=== PATIENT | female | born 1990 | race Caucasian/White ===

== ENCOUNTER 2021-02-03 14:24 | Outpatient (CLI) | payer SELFPAY ==
[2021-02-04 03:28] LABS: SARS-CoV-2 PCR by NAA Not Detected (NotDetected)
== END 2021-02-03 14:25 | disposition home or self-care (01) ==
LOC: CSHLAB 14:24
PROVIDERS: ATTEND Obstetrics & Gynecology
DX: Z20.822 Contact with and (suspected) exposure to COVID-19 (principal)
CPT/HCPCS: 87635; U0003; U0005

== ENCOUNTER 2021-02-07 18:50 | Inpatient (IN) | payer SELFPAY ==
[2021-02-07] MEDS ORDERED: Butorphanol Tartrate 1 MG/ML VIAL SLOW IVP PRN (20:30)
[2021-02-07] MEDS ORDERED: hydrALAZINE 20 MG/ML VIAL SLOW IVP PRN (20:30)
[2021-02-07] MEDS ORDERED: NS / Oxytocin 40 units/1000ml 1,000 ML IV PRN (20:30)
[2021-02-07] MEDS ORDERED: Ibuprofen 800 MG TAB PO PRN (20:30)
[2021-02-07] MEDS ORDERED: Promethazine HCl 25 MG/ML VIAL IM PRN (20:30)
[2021-02-07] MEDS ORDERED: Ondansetron PF 4 MG/2 ML Vial IVP PRN (20:30)
[2021-02-07] MEDS ORDERED: HYDROcodone/Acetaminophen 5/325 mg Tablet PO PRN ×2 (20:30)
[2021-02-07] MEDS ORDERED: Lidocaine 1% (PF) 30 ML VIAL SC PRN (20:30)
[2021-02-07 20:31] VITALS: BMI 23.0
[2021-02-07 20:51] LABS: Hemoglobin 12.5 g/dL (12.0-15.5); Mean Corpuscular HGB CONC 35.4 g/dL (32.0-36.0); Mean Corpuscular Hemoglobin 32.6 pg (27.0-33.0); Mean Corpuscular Volume 91.9 fl (81.6-98.3); Mean Platelet Volume 11.1 fl (7.4-10.4); Platelet Count 185 10x3/uL (150-450); RBC Distribution Width 12.5 % (11.5-14.5); Red Blood Cell (RBC) Count 3.84 10x6/uL (3.90-5.03); White Blood Cell (WBC) Count 6.5 10x3/uL (3.5-10.5)
[2021-02-07 21:22] LABS: Hep B Surf Ag Non-Reactive S/CO (NonReactive)
[2021-02-07 21:23] LABS: Syphilis Antibody Nonreactive (Nonreactive); Syphilis Antibody Index 0.03 S/CO (<1.00 Non-Reactive)
[2021-02-07 21:27] LABS: HBSAg Index 0.15 S/CO (0-0.99)
[2021-02-08] MEDS ORDERED: NS w/ Oxytocin 30 units 500 ML ONE (06:02)
[2021-02-08] MEDS ORDERED: Ibuprofen 800 MG TAB PO PRN (06:06)
[2021-02-08] MEDS ORDERED: hydrALAZINE 20 MG/ML VIAL SLOW IVP PRN ×2 (06:06→13:18)
[2021-02-08] MEDS ORDERED: HYDROcodone/Acetaminophen 5/325 mg Tablet PO PRN ×4 (06:07→13:18)
[2021-02-08] MEDS ORDERED: Butorphanol Tartrate 1 MG/ML VIAL SLOW IVP PRN (06:08)
[2021-02-08] MEDS ORDERED: Ondansetron PF 4 MG/2 ML Vial IVP PRN ×3 (06:08→13:18)
[2021-02-08] MEDS ORDERED: Lidocaine 1% (PF) 30 ML VIAL SC PRN (06:08)
[2021-02-08] MEDS ORDERED: Promethazine HCl 25 MG/ML VIAL IM PRN ×2 (06:08→09:50)
[2021-02-08] MEDS ORDERED: NS w/ Oxytocin 30 units 500 ML IVPB PRN (06:09)
[2021-02-08] MEDS ORDERED: Lactated Ringer's 1,000 ML IV SCH (06:15)
[2021-02-08] MEDS ORDERED: NS w/ Oxytocin 30 units 500 ML IV SCH (06:30)
[2021-02-08] MEDS ORDERED: Fentanyl 4 mcg/Bup 0.1% Cadd 100 ML ONE (08:29)
[2021-02-08] MEDS ORDERED: ePHEDrine 50 MG/ML VIAL SLOW IVP PRN (09:50)
[2021-02-08] MEDS ORDERED: Naloxone HCl 0.4 mg/ml Vial IVP PRN ×2 (09:50)
[2021-02-08] MEDS ORDERED: diphenhydrAMINE 50 MG/ML VIAL IVP PRN (09:50)
[2021-02-08] MEDS ORDERED: Eucerin (Mineral Oil/Petrolatum,White) 30 gm Jar TOP PRN (09:50)
[2021-02-08] MEDS ORDERED: Lactated Ringer's 500 ML IV PRN (09:50)
[2021-02-08] MEDS ORDERED: Acetaminophen 325 MG TAB PO PRN (09:50)
[2021-02-08] MEDS ORDERED: Fentanyl 4 mcg/Bupivacaine 0.1% Cassette 100 ML EPIDURAL SCH (10:00)
[2021-02-08] MEDS ORDERED: Communication Order-Pharmacy FS SCH (10:00)
[2021-02-08] MEDS ORDERED: Erythromycin Base 0.5% Oint 1 GM TUBE ONE (11:15)
[2021-02-08] MEDS ORDERED: Hepatitis B Vaccine 10 MCG/0.5 ML SYR ONE (11:15)
[2021-02-08] MEDS ORDERED: Phytonadione Neonatal 1 MG/0.5 ML AMP ONE (11:15)
[2021-02-08] MEDS ORDERED: Preparation H Ointment 28 GM TUBE PR PRN (13:18)
[2021-02-08] MEDS ORDERED: Bisacodyl 10 MG SUPP PR PRN (13:18)
[2021-02-08] MEDS ORDERED: Adacel (T-DAP) 0.5 ML SYRINGE IM ONE (13:18)
[2021-02-08] MEDS ORDERED: Lanolin Ointment 7 GM TUBE TOP PRN (13:18)
[2021-02-08] MEDS ORDERED: diphenhydrAMINE 25 MG CAP PO PRN (13:18)
[2021-02-08] MEDS ORDERED: Benzocaine-Menthol 82.5 ML CAN TOP PRN (13:18)
[2021-02-08] MEDS ORDERED: Milk Of Magnesia 30 ML UDCUP PO PRN (13:18)
[2021-02-08] MEDS ORDERED: NS w/ Oxytocin 30 units 500 ML IVPB SCH (14:15)
[2021-02-08] MEDS ORDERED: Boostrix 0.5 ML (Tdap) VIAL IM ONE (14:15)
[2021-02-08] MEDS: Ibuprofen 800 MG TAB PO SCH ×2 (14:25→21:45)
[2021-02-08] MEDS: Ferrous Sulfate 325 MG TAB PO SCH (15:37)
[2021-02-08] MEDS: Lactated Ringer's 1,000 ML IV SCH (15:38)
[2021-02-08] MEDS: Docusate Calcium (SURFAK) 240 MG CAP PO SCH (21:46)
[2021-02-09] MEDS: Ibuprofen 800 MG TAB PO SCH (05:34)
[2021-02-09 08:01] VITALS: BP 99/54; TEMP 98.1
[2021-02-09] MEDS ORDERED: Prenatal Vitamin 1 TAB PO SCH (09:00)
[2021-02-09] MEDS: Docusate Calcium (SURFAK) 240 MG CAP PO SCH (09:16)
[2021-02-09] MEDS: Ferrous Sulfate 325 MG TAB PO SCH (09:16)
== END 2021-02-09 13:55 | disposition home or self-care (01) | DRG 807 ==
LOC: CSHLD 18:50 → UNDODISIN 02-08 00:50 → CSHPP 02-08 13:30
PROVIDERS: ADMIT Obstetrics & Gynecology; ATTEND Obstetrics & Gynecology
PROC: 10E0XZZ Delivery of Products of Conception, External Approach (ICD-10-PCS; principal; 2021-02-08)
PROC: 10907ZC Drainage of Amniotic Fluid, Therapeutic from Products of Conception, Via Natural or Artificial Opening (ICD-10-PCS; 2021-02-08)
PROC: 0U7C7ZZ Dilation of Cervix, Via Natural or Artificial Opening (ICD-10-PCS; 2021-02-08)
DX: O34.211 Maternal care for low transverse scar from previous cesarean delivery (principal); Z37.0 Single live birth; O48.0 Post-term pregnancy; Z20.822 Contact with and (suspected) exposure to COVID-19; Z3A.40 40 weeks gestation of pregnancy
CPT/HCPCS: 85027; 86780; 86850; 86900; 86901; 87340; J2590

== ENCOUNTER 2024-03-04 12:07 | Inpatient (IN) | payer OTHER, SELFPAY ==
[2024-03-04] MEDS ORDERED: HYDROcodone/Acetaminophen 5/325 mg Tablet PO PRN ×2 (20:25)
[2024-03-04] MEDS ORDERED: Lidocaine 1% (PF) 30 ML VIAL SC PRN (20:25)
[2024-03-04] MEDS ORDERED: hydrALAZINE 20 MG/ML VIAL SLOW IVP PRN (20:25)
[2024-03-04] MEDS ORDERED: Oxytocin 30 units/NS 500 ML 500 ML IV SCH ×2 (20:25)
[2024-03-04] MEDS ORDERED: Lactated Ringer's 1,000 ML IV SCH (20:25)
[2024-03-04] MEDS ORDERED: Ondansetron PF 4 MG/2 ML Vial IVP PRN (20:25)
[2024-03-04] MEDS ORDERED: Promethazine HCl 25 MG/ML VIAL IM PRN (20:25)
[2024-03-04] MEDS ORDERED: fentaNYL 50 mcg/mL 1 mL Vial SLOW IVP PRN (20:25)
[2024-03-04 20:30] VITALS: BMI 23.3
[2024-03-04] MEDS ORDERED: Oxytocin 30 units/NS 500 ML 500 ML IVPB SCH (21:45)
[2024-03-04 21:50] LABS: Hematocrit 34.5 % (34.9-44.5); Hemoglobin 12.4 g/dL (12.0-15.5); Mean Corpuscular HGB CONC 35.9 g/dL (32.0-36.0); Mean Corpuscular Hemoglobin 33.3 pg (27.0-33.0); Mean Corpuscular Volume 92.7 fl (81.6-98.3); Mean Platelet Volume 11.1 fl (7.4-10.4); Platelet Count 189 10x3/uL (150-450); RBC Distribution Width 12.6 % (11.5-14.5); Red Blood Cell (RBC) Count 3.72 10x6/uL (3.90-5.03); White Blood Cell (WBC) Count 6.8 10x3/uL (3.5-10.5)
[2024-03-04 22:09] LABS: HBsAg Index 0.16 S/CO (0-0.99); Hep B Surf Ag - L&D Non-Reactive S/CO (NonReactive); Syphilis Antibody Nonreactive (Nonreactive); Syphilis Antibody Index 0.06 S/CO (<1.00 Non-Reactive)
[2024-03-05] MEDS: fentaNYL 2 mcg/Ropivacaine 0.2% Epidural 100 ML CADD EPIDURAL SCH (11:40)
[2024-03-05] MEDS ORDERED: Acetaminophen 325 MG TAB PO PRN (13:05)
[2024-03-05] MEDS ORDERED: Ondansetron PF 4 MG/2 ML Vial IVP PRN ×2 (13:05→18:31)
[2024-03-05] MEDS ORDERED: Lactated Ringer's 500 ML IV PRN (13:05)
[2024-03-05] MEDS ORDERED: Moisturizing Cream (Eucerin) 113 GM JAR TOP PRN (13:05)
[2024-03-05] MEDS ORDERED: Promethazine HCl 25 MG/ML VIAL IM PRN (13:05)
[2024-03-05] MEDS ORDERED: Naloxone HCl 0.4 mg/ml Vial IVP PRN ×2 (13:05)
[2024-03-05] MEDS ORDERED: diphenhydrAMINE 50 MG/ML VIAL IVP PRN (13:05)
[2024-03-05] MEDS ORDERED: Communication Order-Pharmacy FS SCH (13:15)
[2024-03-05] MEDS: ePHEDrine Sulfate 50 MG/10 ML VIAL SLOW IVP PRN (13:24)
[2024-03-05] MEDS: Methylergonovine 0.2 MG/ML VIAL ONE (14:24)
[2024-03-05] MEDS: Misoprostol 200 MCG TAB ONE (14:24)
[2024-03-05] MEDS: Ibuprofen 800 MG TAB PO PRN (18:17)
[2024-03-05] MEDS: Midazolam HCl 2 mg/2 ml Vial ONE (18:18)
[2024-03-05] MEDS ORDERED: Benzocaine-Menthol 82.5 ML CAN TOP PRN (18:31)
[2024-03-05] MEDS ORDERED: Bisacodyl 10 MG SUPP PR PRN (18:31)
[2024-03-05] MEDS ORDERED: Boostrix 0.5 ML (Tdap) VIAL (>/=7 yrs of age) IM ONE (18:31)
[2024-03-05] MEDS ORDERED: hydrALAZINE 20 MG/ML VIAL SLOW IVP PRN (18:31)
[2024-03-05] MEDS ORDERED: Oxytocin 30 units/NS 500 ML 500 ML IV SCH (18:31)
[2024-03-05] MEDS ORDERED: Milk Of Magnesia 30 ML UDCUP PO PRN (18:31)
[2024-03-05] MEDS ORDERED: diphenhydrAMINE 25 MG CAP PO PRN (18:31)
[2024-03-05] MEDS ORDERED: Preparation H Ointment 28 GM TUBE PR PRN (18:31)
[2024-03-05] MEDS ORDERED: Lanolin Ointment 7 GM TUBE TOP PRN (18:31)
[2024-03-05] MEDS: fentaNYL/Ropivacaine Epidural 100 ML ONE (19:23)
[2024-03-05] MEDS: hydrALAZINE 20 MG/ML VIAL ONE (19:23)
[2024-03-05] MEDS: Ferrous Sulfate 325 MG TAB PO SCH (20:22)
[2024-03-05] MEDS: Ibuprofen 800 MG TAB PO SCH (20:41)
[2024-03-05] MEDS: Docusate 100 MG CAP PO SCH (22:44)
[2024-03-05] MEDS: HYDROcodone/Acetaminophen 5/325 mg Tablet PO PRN (22:44)
[2024-03-06] MEDS: HYDROcodone/Acetaminophen 5/325 mg Tablet PO PRN (03:13)
[2024-03-06] MEDS: Ferrous Sulfate 325 MG TAB PO SCH (08:00)
[2024-03-06 11:35] VITALS: BP 96/51; TEMP 97.7
[2024-03-06] MEDS ORDERED: ePHEDrine Sulfate 50 MG/10 ML VIAL ONE (16:08)
== END 2024-03-06 17:45 | disposition home or self-care (01) | DRG 807 ==
LOC: CSHLD 17:50 → CSHPP 03-05 18:30
PROVIDERS: ADMIT Obstetrics & Gynecology; ATTEND Obstetrics & Gynecology
PROC: 10E0XZZ Delivery of Products of Conception, External Approach (ICD-10-PCS; principal; 2024-03-05)
PROC: 10907ZC Drainage of Amniotic Fluid, Therapeutic from Products of Conception, Via Natural or Artificial Opening (ICD-10-PCS; 2024-03-05)
PROC: 0U7C7ZZ Dilation of Cervix, Via Natural or Artificial Opening (ICD-10-PCS; 2024-03-05)
DX: O48.0 Post-term pregnancy (principal); O34.211 Maternal care for low transverse scar from previous cesarean delivery; Z37.0 Single live birth; Z3A.40 40 weeks gestation of pregnancy; O62.2 Other uterine inertia
CPT/HCPCS: 85027; 86762; 86780; 86850; 86900; 86901; 87340; J2210